=== PATIENT | female | born 1970 | race Caucasian/White ===

== ENCOUNTER 2017-12-12 07:22 | Emergency (ER) | payer BC ==
[2017-12-12] MEDS ORDERED: CYCL-331 PO (08:02)
--- NOTE | 2017-12-12 08:02 | PHYS DOC ---
Past History Past Medical History: No Pertinent History Past Surgical History: No Surgical History Alcohol Use: Occasionally Drug Use: None Adult General Chief Complaint Chief Complaint: HEADACHE HPI HPI Patient is a 47 year old female who presents with bilateral neck pain after lifting weights. She states she started workout routine about 2 weeks ago is been lifting weights 3 times a week and every time during her lifting and the next day she has pain and bilateral occipital areas with a hatchet minute of the trapezius muscles are. She states she's tried Tylenol and it usually relieves her symptoms. She denies any numbness, tingling, weakness in her arms legs, or other concerns. She denies any midline neck tenderness, fevers chills urinary incontinence or other concerns. She was taking ginkgo biloba a few times a 4 she started her workout routine but when she started getting her initial discomfort she stopped this medicine. Review of Systems Review of Systems Constitutional: Denies fever or chills [] Eyes: Denies change in visual acuity, redness, or eye pain [] HENT: Denies nasal congestion or sore throat [] Respiratory: Denies cough or shortness of breath [] Cardiovascular: No additional information not addressed in HPI [] GI: Denies abdominal pain, nausea, vomiting, bloody stools or diarrhea [] : Denies dysuria or hematuria [] Musculoskeletal: Denies back pain or joint pain, positive for neck pain Integument: Denies rash or skin lesions [] Neurologic: Denies headache, focal weakness or sensory changes [] Endocrine: Denies polyuria or polydipsia [] All other systems were reviewed and found to be within normal limits, except as documented in this note. Physical Exam Physical Exam Constitutional: Well developed, well nourished, no acute distress, non-toxic appearance. [] HENT: Normocephalic, atraumatic, bilateral external ears normal, oropharynx moist, no oral exudates, nose normal. [] Eyes: PERRLA, EOMI, conjunctiva normal, no discharge. [] Neck: Normal range of motion, no tenderness, supple, no stridor. [] Cardiovascular:Heart rate regular rhythm, no murmur [] Lungs & Thorax: Bilateral breath sounds clear to auscultation [] Abdomen: Bowel sounds normal, soft, no tenderness, no masses, no pulsatile masses. [] Skin: Warm, dry, no erythema, no rash. [] Back: No tenderness, no CVA tenderness. No midline neck tenderness noted, mild tenderness palpation exertion points to the trapezius muscle in the occiput this area of the skull, full range of motion noted, no crepitus Extremities: No tenderness, no cyanosis, no clubbing, ROM intact, no edema. [] Neurologic: Alert and oriented X 3, normal motor function, normal sensory function, no focal deficits noted. [] Psychologic: Affect normal, judgement normal, mood normal. [] Current Patient Data Vital Signs Vital Signs Date Time Temp Pulse Resp B/P (MAP) Pulse Ox O2 Delivery O2 Flow Rate FiO2 12/12/17 07:30 98.0 83 16 94 Room Air EKG EKG [] Radiology/Procedures Radiology/Procedures [] Impressions: Neck pain Course & Med Decision Making Course & Med Decision Making Pertinent Labs and Imaging studies reviewed. (See chart for details) Her symptoms are consistent with overuse syndrome. At this point we will have her take 600 mg Advil every 8 hours for 3-4 days and I will discharge her with 10 tablets of Flexeril for her to use when necessary this doesn't relieve her symptoms. She is instructed to lay off shoulder weights and other activities that we will stress her neck muscles. We had a discussion regarding ginkgo biloba and I informed her I cannot encourage her to use this as I have no information regarding this medication since is no FDA approved studies regarding this medication. She is agreeable to the plan and being discharged in stable condition at this time. Dragon Disclaimer Dragon Disclaimer This electronic medical record was generated, in whole or in part, using a voice recognition dictation system. Departure Departure: Impression: Primary Impression: Muscle strain Disposition: HOME, SELF-CARE Condition: STABLE Referrals: PCP,NO (PCP) Patient Instructions: Muscle Strain Additional Instructions: You were seen today in the emergency department for muscle aches in your neck.You deny any concerning symptoms such as numbness in your arms legs, tingling, any decreased sensation, weakness or other concerns. You deny any fevers. At this point you can try taking Advil 600 mg every 8 hours for next 3- 4 days for your aches and pains. You are also being discharged with 10 tablets of Flexeril. Flexeril can be used 1 every 8 hours for muscle spasms and aches. Flexeril can make you sleepy, therefore be careful when taking flexeril and do not drink alcohol or drive. If flexeril makes you too sleepy, you can take 1 before you go to bed. If you develop any concerning symptoms, such as numbness, tingling in your arms, fevers, worsening pain or discomfort, then you need to return back to the ER. You will need to follow-up with your primary care physician within the next few days. Scripts Cyclobenzaprine Hcl (CYCLOBENZAPRINE HCL) 10 Mg Tablet 1 TAB PO TID Y for MUSCLE PAIN, #10 TAB Prov: EDGAR AC MD 12/12/17 EDGAR AC MD Dec 12, 2017 08:02
[2017-12-12 08:10] VITALS: BP 156/92
== END 2017-12-12 08:10 | disposition home or self-care (01) ==
LOC: ER 07:22
DX: S16.1XXA Strain of muscle, fascia and tendon at neck level, initial encounter (principal); X58.XXXA Exposure to other specified factors, initial encounter; Y93.B3 Activity, free weights; Y99.8 Other external cause status; Y92.89 Other specified places as the place of occurrence of the external cause
CPT/HCPCS: 99283